=== PATIENT | female | born 1995 | race Caucasian/White ===

== ENCOUNTER → 2019-08-30 13:25 | Outpatient (BNVA) | payer BC, SELFPAY | PROVIDERS: Referring Provider Obstetrics & Gynecology; Visit Provider Obstetrics & Gynecology | DX: Z32.01 Encounter for pregnancy test, result positive (principal) | CPT/HCPCS: 81025 ==

== ENCOUNTER → 2019-09-17 13:35 | Outpatient (BNVA) | payer BC, SELFPAY | PROVIDERS: Visit Provider Nurse Practitioner Women's Health | DX: O26.849 Uterine size-date discrepancy, unspecified trimester (principal); Z3A.10 10 weeks gestation of pregnancy | CPT/HCPCS: 84315; 84702 ==

== ENCOUNTER → 2019-09-20 09:55 | Outpatient (BNVA) | payer BC, SELFPAY | PROVIDERS: Visit Provider Obstetrics & Gynecology | DX: Z36.87 Encounter for antenatal screening for uncertain dates (principal); Z3A.01 Less than 8 weeks gestation of pregnancy | CPT/HCPCS: 76817; 80053; 84439; 84443; 85025; 86900; 87491; 87591; 88175 ==

== ENCOUNTER 2019-09-30 06:53 | Outpatient (CLI) | payer BC, SELFPAY | END 2019-09-30 06:54 | disposition home or self-care (01) | PROVIDERS: Visit Provider Obstetrics & Gynecology | DX: O08.89 Other complications following an ectopic and molar pregnancy (principal); O02.1 Missed abortion; Z3A.12 12 weeks gestation of pregnancy | CPT/HCPCS: 36415; 76817; 84315; 84702; 86850 ==

== ENCOUNTER 2019-10-01 05:45 | Day surgery (SDC) | payer BC, SELFPAY ==
[2019-09-30 16:24] VITALS: BMI 17.7
[2019-10-01] VITALS (9 sets, daily range): BP systolic 115–131; BP diastolic 55–82; PULSE 70–117; RESP 16–22; TEMP 37.2–37.9; O2SAT 98–100
--- NOTE | 2019-10-01 06:24 | P.ANESASSM_ITS ---
Pre-Anesthetic Assessment Pre-Anesthetic Assessment: Height/Weight: Height 1.75 m Weight 54.431 kg Temp Pulse Resp BP Pulse Ox 99.0 F 70 18 118/55 100 10/01/19 06:05 10/01/19 05:56 10/01/19 05:56 10/01/19 05:56 10/01/19 05:56 Preop Diagnosis: Missed -likely partial molar Proposed Procedure: Operation Date: 10/01/19 07:10 Proposed Procedures p Dilation And Curettage w/ Suction 29033/O08.89(Not Applicable) - Antoinette Price MD Familial anesthetic complications: None - no hx Was Beta Kevin taken within 24 hours: N/A Last intake: Intake Last Liquid Date 10/01/19 Last Liquid Time 05:00 (sip of water) Last Solid Date 09/30/19 Last Solid Time 16:30 Social: Social History: No alcohol and No tobacco Exam: Pre-Anes Outpt Exam: alert, oriented x 3, clear to auscultation bilaterally and regular rate & rhythm Airway: Cervical ROM: WNL MP: 2 Dentition: Full Pulmonary: Pulmonary: None reported CV/HEM: CV/HEM: None reported : : None reported Hepatic: Hepatic: None reported GI: GI: None reported Metabolic: Metabolic: None reported Musc/skel: Musc/skel: None reported Neuropsych: Neuropsych: None reported Anesthetic Plan: ASA status: 1 Anesthesia: General Risk of > 500 ml blood loss (7ml/kg in children): No PFSH Anesthesia PFSH: Medical History (Updated 09/30/19 @ 15:54 by Antoinette Garcia MD) No pertinent past medical history Denies: hypertension, hypercholesterolemia, heart, lung, liver, kidney, thyroid disease, DVT/PE. PCP: None Surgical History No pertinent past surgical history Family History (Updated 09/30/19 @ 08:47 by Katie Cadet RN) Father Hypertension Hyperlipidemia Heart disease Grandmother Diabetes Maternal grandmother Paternal grandmother Breast cancer Maternal grandmother, diagnosed in her 70s Denies family history of Colon cancer Ovarian cancer Family history of thyroid problem Uterine cancer Stroke Social History (Updated 09/30/19 @ 08:49 by Katie Cadet RN) Smoking and tobacco status: former smoker Alcohol intake: unknown Additional social history: - Tobacco Use: Started smoking at age 16 and smoked up to 1 pack per day until 06/2018 when she quit. Denies tobacco use since then. Drug Use: Reports smoking marijuana several times in the past. 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
[2019-10-01] MEDS: sodium chloride 0.9% 1,000 ML 30 ML IV (06:26)
--- NOTE | 2019-10-01 06:53 | P.HPUD_ITS ---
Surgery/Procedure H&P Update DATE OF PROCEDURE: October 01, 2019 DATE H&P PERFORMED: 09/30/19 H&P UPDATE INFORMATION: I have reviewed H&P completed within last 30 days, I have examined patient prior to procedure, No changes to prior documentation and H&P is in [facility] [place] on date indicated PREOP DIAGNOSIS: Missed -likely partial molar PLANNED PROCEDURE: DilATION AND CURETTAGE Operation Date: 10/01/19 07:10 Proposed Procedures p Dilation And Curettage w/ Suction 07786/O08.89(Not Applicable) - Antoinette Price MD
[2019-10-01] MEDS: miSOPROStol 200 mcg Tablet 600 MCG PO (07:40)
--- NOTE | 2019-10-01 07:40 | P.OP_ITS ---
Operative Report Date of procedure: October 01, 2019 Pre-op Diagnosis: Missed -likely partial molar Procedure: OPERATIVE REPORT Date of surgery: 10/01/2019 Date of dictation: 10/01/2019 Preoperative diagnosis: Missed at 9 weeks, possible partial molar Postoperative diagnosis/findings: 8 to 9-week size anteverted uterus, no adnexal masses, Procedure done: Dilation and suction curettage Specimens removed/disposition of specimens: Products of conception sent to pathology Surgeon: Dr. Antoinette Navarro Registered Respiratory Therapist: Anita Anesthesia: General endotracheal tube anesthesia Estimated blood loss: 300 ml Intravenous fluids: 700 mL of LR Urine output: 20 mL of clear urine via red rubber catheter at the start of the procedure Medications: 600 mcg of Cytotec per rectum, 20 units of Pitocin, 200 mg of doxycycline IV Complications: None, patient was extubated and taken to the recovery room in a stable condition. PROCEDURE: After consent was obtained patient was taken to the operating room where she is placed under general endotracheal tube anesthesia without any difficulty. She was placed supine on the table in lithotomy position. Care was taken to ensure that her legs were well positioned to avoid pressure points. She was then prepped and draped in the usual sterile fashion. Exam under anesthesia was done at this time which showed a 8 to 9-week size anteverted uterus, no adnexal masses. The weighted speculum and lateral vaginal wall retractors were placed in the vagina and the cervix was visualized. The cervix appeared closed and normal. The cervix was dilated to a 17 Crocker dilator. This allowed placement of a 7 rigid suction curette without any difficulty. The curette was advanced to the fundus and suction curettage was then performed in a circular fashion moving downwards taking care to not go beyond the fundus. This was done a couple of times until the products of conception was removed and gritty texture was obtained. B rigid suction curette was removed and sharp curetting was performed. All specimens were sent to pathology labeled products of conception. As curettaged was being performed 20 units of Pitocin Was started and she also received 600 mcg of Cytotec rectally to help decrease the risk of bleeding as there was suspicion of a partial mole. No active bleeding was noted from the cervix. Tenaculum was removed and [default value] . Good hemostasis was achieved. All instruments were removed from the vagina. Patient was cleaned well and anesthesia was reversed without any difficulty. She was taken to the recovery in a stable condition. FOLLOW UP: Follow-up in 2 weeks(telehealth) and 6 weeks with surgeon MEDICATION ON DISCHARGE: Ibuprofen 800 mg by mouth every 8 hours when necessary pain, 60 tablets---OTC Cytotec 200 mcg p.o. every 6 hours Continue other home medication DISPOSITION: Home in a stable condition
[2019-10-01] MEDS: ondansetron 2 mg/ML SDV 2 mL 4 MG IVP (08:08)
--- NOTE | 2019-10-01 08:24 | SUR.PHASEI ---
0805 PT AWAKE ALERT C/O OF URGENT NEED TO VOID , DENIES PAIN PT HAS OXYTOCIN IN IV TO IN FUSE OVER THE NEXT HOUR, PT TO REMAIN IN PHASE2 FOR 1 1/2 HOURS BEFORE DISCHARGE, HANDOFF AT BEDSIDE PT TO OPS PER CART. ABD SOFT PT ON BEDPAN FOR ABOVE COMPLAINT BUT WANTS TO GET UP TO BR.
[2019-10-01] MEDS: morphine 4 mg/mL SDV 1 mL IVP (08:25)
== END 2019-10-01 09:48 | disposition home or self-care (01) ==
PROVIDERS: Visit Provider Obstetrics & Gynecology
PROC: (CPT 59820; principal; 2019-10-01 07:00)
DX: O02.1 Missed abortion (principal); Z3A.09 9 weeks gestation of pregnancy; F17.210 Nicotine dependence, cigarettes, uncomplicated
CPT/HCPCS: 59820; 12345; 36415; 86850; 86900; 88305; 96374; 96375; J0330; J1100; J2001; J2270; J2405; J2704; J2765; J3010; J3490; J7030

== ENCOUNTER → 2019-10-09 11:50 | Outpatient (BNVA) | payer BC, SELFPAY | PROVIDERS: Visit Provider Obstetrics & Gynecology | DX: O02.1 Missed abortion (principal) | CPT/HCPCS: 84702 ==

== ENCOUNTER → 2019-10-16 12:00 | Outpatient (BNVA) | payer BC, SELFPAY | PROVIDERS: Visit Provider Obstetrics & Gynecology | DX: O02.1 Missed abortion (principal) | CPT/HCPCS: 84702 ==

== ENCOUNTER → 2019-10-28 12:03 | Outpatient (BNVA) | payer BC, SELFPAY | PROVIDERS: Visit Provider Obstetrics & Gynecology | DX: O02.1 Missed abortion (principal); O08.89 Other complications following an ectopic and molar pregnancy | CPT/HCPCS: 84702 ==

== ENCOUNTER → 2019-11-08 11:18 | Outpatient (BNVA) | payer BC, SELFPAY | PROVIDERS: Visit Provider Obstetrics & Gynecology | DX: O02.1 Missed abortion (principal); O08.89 Other complications following an ectopic and molar pregnancy | CPT/HCPCS: 84702 ==

== ENCOUNTER → 2019-11-12 10:35 | Outpatient (BNVA) | payer BC, SELFPAY | PROVIDERS: Visit Provider Obstetrics & Gynecology | DX: Z12.4 Encounter for screening for malignant neoplasm of cervix (principal); O08.89 Other complications following an ectopic and molar pregnancy; O02.1 Missed abortion; Z12.9 Encounter for screening for malignant neoplasm, site unspecified | CPT/HCPCS: 88175 ==

== ENCOUNTER → 2019-11-26 10:17 | Outpatient (BNVA) | payer BC, SELFPAY | PROVIDERS: Visit Provider Obstetrics & Gynecology | DX: R87.611 Atypical squamous cells cannot exclude high grade squamous intraepithelial lesion on cytologic smear of cervix (ASC-H) (principal) | CPT/HCPCS: 81025 ==

== ENCOUNTER → 2019-11-27 12:08 | Outpatient (BNVA) | payer BC, SELFPAY | PROVIDERS: Visit Provider Obstetrics & Gynecology | DX: R87.611 Atypical squamous cells cannot exclude high grade squamous intraepithelial lesion on cytologic smear of cervix (ASC-H) (principal) | CPT/HCPCS: 88305 ==

== ENCOUNTER → 2019-12-10 11:14 | Outpatient (BNVA) | payer BC, SELFPAY | PROVIDERS: Visit Provider Obstetrics & Gynecology | DX: O08.89 Other complications following an ectopic and molar pregnancy (principal) | CPT/HCPCS: 84702 ==

== ENCOUNTER → 2019-12-31 08:21 | Outpatient (BNVA) | payer BC, SELFPAY | PROVIDERS: Visit Provider Obstetrics & Gynecology | DX: N87.1 Moderate cervical dysplasia (principal) | CPT/HCPCS: 81025 ==

== ENCOUNTER → 2020-01-02 10:52 | Outpatient (BNVA) | payer BC, SELFPAY | PROVIDERS: Visit Provider Obstetrics & Gynecology | DX: N87.1 Moderate cervical dysplasia (principal) | CPT/HCPCS: 88305; 88307 ==

== ENCOUNTER → 2020-06-29 09:44 | Outpatient (BNVA) | payer BC, SELFPAY | PROVIDERS: Visit Provider Obstetrics & Gynecology | DX: N87.1 Moderate cervical dysplasia (principal) | CPT/HCPCS: 88175 ==

== ENCOUNTER → 2020-07-14 15:07 | Outpatient (BNVA) | payer BC, SELFPAY | PROVIDERS: Visit Provider Obstetrics & Gynecology | DX: N87.1 Moderate cervical dysplasia (principal) | CPT/HCPCS: 81025 ==